=== PATIENT | female | born 1975 | race Hispanic/Latino ===

== ENCOUNTER 2018-05-26 21:38 | Emergency (ER) | payer BC ==
[2018-05-26] MEDS ORDERED: Morphine 10 MG/ML VIAL ONE (22:09)
[2018-05-26] MEDS ORDERED: Bacitracin Zinc 1 Packet ONE (22:12)
[2018-05-26] MEDS ORDERED: Ketorolac Tromethamine 60 MG/2 ML VIAL ONE (23:00)
[2018-05-26] MEDS ORDERED: HYDROcodone/Acetaminophen 10/325 mg Tablet ONE (23:00)
== END 2018-05-26 23:30 | disposition home or self-care (01) ==
LOC: MADERS 21:38
DX: T20.25XA Burn of second degree of scalp [any part], initial encounter (principal); T23.151A Burn of first degree of right palm, initial encounter; X08.8XXA Exposure to other specified smoke, fire and flames, initial encounter
CPT/HCPCS: 16020; 96372; J1885; J2270